=== PATIENT | female | born 1940 | race Caucasian/White ===

== ENCOUNTER 2017-01-12 11:03 | Outpatient (CLI) | payer MEDICARE ==
[2016-06-10 09:17] VITALS: BP 148/69
[2017-01-12 11:43] LABS: eGFR (African) > 60; eGFR (Non-African) > 60
== END 2017-01-12 11:04 ==
LOC: LAB 11:03
PROVIDERS: ATTEND Family Medicine
DX: E78.2 Mixed hyperlipidemia (principal)
CPT/HCPCS: 36415; 80053; 80061

== ENCOUNTER 2017-05-23 14:00 | Outpatient (CLI) | payer MEDICARE ==
[2016-06-10 09:17] VITALS: BP 148/69
[2017-05-23 14:24] LABS: BASOPHILS % 0.8 (0.0-1.5); MEAN CORPUSCULAR HEMOGLOBIN 33.3 pg (28.0-34.0); MEAN CORPUSCULAR VOLUME 101.3 fl (80.0-100.0); MONOCYTES % 2.8 % (0.0-11.0); NEUTROPHILS # 10.7 # k/uL (1.4-7.7)
[2017-05-23 14:54] LABS: eGFR (African) > 60; eGFR (Non-African) > 60
--- NOTE | 2017-05-23 14:59 | Diagnostic Imaging Report ---
JACKI CULLEN [facility] [id number] [facility] [address] [place], [place]. [address] Report Submission Date: May 23, 2017 2:35:31 PM CDT Patient Study Name: SUSAN SAMANIEGO Date: May 23, 2017 2:15:54 PM CDT Modality Type: CR Gender: F Description: CHEST : 44 Institution: [facility] Physician: JACKI CULLEN Examination: PA and lateral chest. History: Evaluate lung cruz. Comparison exam: Not available Findings: PA lateral chest demonstrate a normal cardiac and mediastinal silhouette. Vascular calcifications involving the aortic arch. Lungs are hyperinflated. No focal infiltrate. No effusion. No blunting of the costophrenic margins. Osseous structures are appropriate for age. Impression: Hyperinflated, emphysematous changes. No acute pulmonary process. Electronically signed on May 23, 2017 2:35:31 PM CDT by: Albert COOL
--- NOTE | 2017-05-23 16:46 | Diagnostic Imaging Report ---
[facility] [id number] [facility] [address] [place], [place]. [address] Report Submission Date: May 23, 2017 3:55:56 PM CDT Patient Study Name: SUSAN SAMANIEGO Date: May 23, 2017 3:20:23 PM CDT Modality Type: CT\SR Gender: F Description: CT BRAIN W & W/O CON : 44 Institution: [facility] Physician: JACKI CULLEN - WALT Examination: CT head without and with contrast History: Double vision Comparison exam: None available Technique: Without and with contrast head CT protocol. Findings: Ventricles and sulci are prominent, though consistent for patient age. Cerebrocerebellar parenchyma demonstrates periventricular low attenuation consistent with small vessel disease. No evidence for parenchymal hemorrhage. No abnormal enhancement on the postcontrast imaging. No evidence for mass or mass effect. No midline shift. No extra axial fluid collections. Partial visualization of the paranasal sinuses, mastoid air cells, orbits, skull and scalp without gross regularity. Impression: Age related changes. No acute parenchymal process. No hemorrhage. No abnormal enhancement. If symptoms persist, consider obtaining a MRI brain to further evaluate. Electronically signed on May 23, 2017 3:55:56 PM CDT by: Albert COOL
== END 2017-05-23 14:02 ==
LOC: RAD 14:00
PROVIDERS: ATTEND Family Medicine
DX: R11.0 Nausea (principal); R63.4 Abnormal weight loss; H53.2 Diplopia; R05 Cough
CPT/HCPCS: 36415; 70470; 71020; 80053; 84443; 85025; Q9966

== ENCOUNTER 2017-09-19 14:32 | Outpatient (CLI) | payer MEDICARE ==
[2016-06-10 09:17] VITALS: BP 148/69
[2017-09-19 15:17] LABS: BASOPHILS % 1.2 (0.0-1.5); EOSINOPHILS % 5.7 % (0.0-6.8); MEAN CORPUSCULAR HEMOGLOBIN 32.1 pg (28.0-34.0); MEAN CORPUSCULAR VOLUME 101.3 fl (80.0-100.0); MONOCYTES % 3.2 % (0.0-11.0); NEUTROPHILS # 6.4 # k/uL (1.4-7.7)
[2017-09-19 15:50] LABS: eGFR (African) > 60; eGFR (Non-African) > 60
[2017-09-19 23:10] LABS: IRON SERUM 116 ug/dL (37-145)
== END 2017-09-19 14:33 ==
LOC: LAB 14:32
PROVIDERS: ATTEND Orthopaedic Surgery
DX: R00.2 Palpitations (principal); M25.511 Pain in right shoulder
CPT/HCPCS: 36415; 80053; 82525; 82607; 82746; 83540; 83921; 84207; 84443; 85025

== ENCOUNTER 2017-09-26 12:34 | Outpatient (CLI) | payer MEDICARE ==
[2016-06-10 09:17] VITALS: BP 148/69
== END 2017-09-26 12:35 ==
LOC: LAB 12:34
PROVIDERS: ATTEND Family Medicine
DX: R73.9 Hyperglycemia, unspecified (principal)
CPT/HCPCS: 36415; 83036

== ENCOUNTER 2017-09-30 14:10 | Outpatient (CLI) | payer MEDICARE ==
[2016-06-10 09:17] VITALS: BP 148/69
== END 2017-09-30 14:11 ==
LOC: POD 14:10
PROVIDERS: ATTEND Podiatrist
DX: B35.1 Tinea unguium (principal); G60.3 Idiopathic progressive neuropathy; M79.674 Pain in right toe(s); M79.675 Pain in left toe(s)
CPT/HCPCS: G0463

== ENCOUNTER 2017-12-30 13:50 | Outpatient (CLI) | payer MEDICARE ==
[2016-06-10 09:17] VITALS: BP 148/69
== END 2017-12-30 14:00 ==
LOC: POD 13:50
PROVIDERS: ATTEND Podiatrist
DX: B35.1 Tinea unguium (principal); M79.674 Pain in right toe(s); M79.675 Pain in left toe(s); G60.3 Idiopathic progressive neuropathy
CPT/HCPCS: 11721; G0463

== ENCOUNTER 2018-03-21 13:33 | Outpatient (CLI) | payer MEDICARE ==
[2016-06-10 09:17] VITALS: BP 148/69
[2018-03-21 14:01] LABS: BASOPHILS % 0.9 (0.0-1.5); EOSINOPHILS % 5.5 % (0.0-6.8); MEAN CORPUSCULAR VOLUME 96.8 fl (80.0-100.0); MONOCYTES % 4.7 % (0.0-11.0); NEUTROPHILS # 5.3 # k/uL (1.4-7.7)
[2018-03-21 14:15] LABS: eGFR (African) > 60; eGFR (Non-African) > 60
== END 2018-03-21 13:34 ==
LOC: RT 13:33
PROVIDERS: ATTEND Family Medicine
DX: R00.2 Palpitations (principal)
CPT/HCPCS: 36415; 80048; 84443; 85025

== ENCOUNTER 2018-03-28 14:35 | Outpatient (CLI) | payer MEDICARE ==
[2016-06-10 09:17] VITALS: BP 148/69
== END 2018-03-28 14:36 ==
LOC: RT 14:35
PROVIDERS: ATTEND Family Medicine
DX: R00.2 Palpitations (principal)
CPT/HCPCS: 93225

== ENCOUNTER 2018-03-31 14:21 | Outpatient (CLI) | payer MEDICARE ==
[2016-06-10 09:17] VITALS: BP 148/69
== END 2018-03-31 14:22 ==
LOC: POD 14:21
PROVIDERS: ATTEND Podiatrist
DX: B35.1 Tinea unguium (principal); M79.674 Pain in right toe(s); M79.675 Pain in left toe(s); G60.3 Idiopathic progressive neuropathy
CPT/HCPCS: 11721

== ENCOUNTER 2018-06-15 04:37 | Emergency (ER) | payer MEDICARE ==
--- NOTE | 2018-06-15 04:46 | ED Physician Documentation ---
Epistaxis - HISTORIAN Historian: patient - HPI Stated Complaint: nose bleed Chief Complaint: Epistaxis Onset: days ago (2 she did go to [facility] ) Timing: still present Location: left Severity: mild Associated Symptoms: other (She was treated at a hospital in [place] she states [facility] ) Further Comments: yes (She states she was treated for an extended nose bleed yesterday. She states she was told the packing would dissolve and she started with another nose bleed 2 hours ago. She tried the home items she had with no relief. She has had partial resolution per EMS) - ROS MS/SKIN/LYMPH: denies: excessive bruising, bleeding from gums EYES/ENT: none NEURO/PSYCH: denies: dizziness, anxiety - PAST HX Past History: previous nosebleeds Immunizations: UTD Home Medications: Ambulatory Orders Medication Instructions Recorded Aspirin [Tonya] 81 mg PO DAILY 06/15/18 - SOCIAL HX Smoking History: cigarettes Alcohol Use: none Drug Use: none - FAMILY HX Family History: No - VITAL SIGNS Vital Signs: Vital Signs Temp Pulse Resp BP Pulse Ox 148/69 06/10/16 09:18 - REVIEWED ASSESSMENTS Nursing Assessment Reviewed: Yes Vitals Reviewed: Yes Progress - Progress Progress: 0507 : minimal drip out of left nare DG 0544: left nare with clot . No active bleeding DG 0610: mild drip noted on left nare will use packing at this time DG 0630: Discussed case with Dr Hyde and will allow for time in clinic tomorrow for removal of Rhino packing DG 0700: Care turned over to Joanna Madrigal FAMILY RESOURCE MANAGEMENT SPECIALIST DG Epistaxis Physical Exam - EXAM General Appearance: no acute distress, alert Nose: nml inspection, other (minimal blood noted at left nare. Crusting blood on fingers and face ) Eyes/Ears: eyes nml inspection, TM nml Mouth: lips nml Neuro/Psych: oriented x3, neuro intact, mood/affect nml Respiratory: no resp distress, chest non-tender, breath sounds normal CVS: reg rate & rhythm, heart sounds normal, equal pulses, no murmur Abdomen: non-tender Skin: nml color, no skin rash Discharge Clincal Impression: Epistaxis Referrals: Annita Hyde MD [Primary Care Provider] - 2 Days Comments: 1. Notify PCP for any issues with continued bleeding 2. Return to ER for any uncontrolled bleeding Condition: Stable Disposition: 01 HOME, SELF-CARE Decision to Admit: NO Date of Decison to Admit: 06/15/18 Decision Time: 06:42
[2018-06-15] MEDS: OXYMETAZOLINE HCL 0.05% NASAL SPRAY NS ONE (05:20)
[2018-06-15 05:46] LABS: BASOPHILS % 0.4 (0.0-1.5); EOSINOPHILS % 1.9 % (0.0-6.8); MEAN CORPUSCULAR HEMOGLOBIN 30.7 pg (28.0-34.0); MONOCYTES % 2.6 % (0.0-11.0); NEUTROPHILS # 7.4 # k/uL (1.4-7.7)
[2018-06-15] MEDS: 0.9 % SODIUM CHLORIDE 1,000 ML IV ONE (06:00)
[2018-06-15 06:06] LABS: eGFR (Non-African) > 60
[2018-06-15] MEDS ORDERED: SODIUM CHLORIDE 3 ML VIAL.NEB IH ONE (06:39)
[2018-06-15 07:34] VITALS: BP 172/75
== END 2018-06-15 06:45 | disposition home or self-care (01) ==
LOC: ED 04:37
DX: R04.0 Epistaxis (principal)
CPT/HCPCS: 80053; 85025; 85610; J7030; 96365; 99284; S1016

== ENCOUNTER 2019-09-06 10:30 | Emergency (ER) | payer MEDICARE ==
[2019-09-06] MEDS ORDERED: IPRATROPIUM/ALBUTEROL SULFATE 3 ML AMPUL.NEB NEB ONE (11:00)
[2019-09-06] MEDS ORDERED: 0.9 % SODIUM CHLORIDE 500 ML IV ONE (11:00)
[2019-09-06 11:03] LABS: BASOPHILS % 0.7 % (0.0-1.5); NEUTROPHILS # 6.6 # k/uL (1.4-7.7)
--- NOTE | 2019-09-06 11:10 | ED Physician Documentation ---
General Adult - HISTORIAN Historian: patient, spouse - [facility] Chief Complaint: General Adult Additional Information: 79 year old female presents via [facility] from home; according to he had been trying to wake her up since 8:00 this morning and after 30-60 min. of trying he called the ambulance. They were able to wake her up; she did not want to be transferred but finally agreed. The stated that the nurse stayed till midnight last night because patients pulse ox was 40%, lips were blue, extremities were blue; they placed her on bipap and she rested. Patient states that she use to be on Hospice but was taken off around May because she was independent and eating well. At this time she states that she is not able to walk anymore, she lays in the bed all day, she states that she does not eat- she has no desire; she tries to drink fluids; they questioned if she would qualify for hospice since she has declined and can no longer care for herself independently. Patient is starting to have skin issues including; coccyx and heels (redness). Patient states that she is a DNR "this is no way to live". Will get with [employer] Onset: hours Timing: better Severity: mild Modifying Factors: Low oxygen last night; was on Bipap - ROS CONST: fever, sweating, recent illness, weakness, weight loss EYES/ENT: none CVS/RESP: shortness of breath, cough (patient feels that she cant cough deep enough to get anything up) GI/: denies: vomiting, nausea MS/SKIN/LYMPH: none NEURO/PSYCH: tingling, difficulty walking - PAST HX Past History: asthma, COPD, CHF, hypertension, other (GERD, ANGELINA) Other History: CVA, other (C-DIFF, PER. NEUROPATHY) Surgeries/Procedures: hysterectomy Immunizations: UTD Allergies/Adverse Reactions: Allergies Allergy/AdvReac Type Severity Reaction Status Date / Time No Known Drug Allergies Allergy Verified 09/06/19 10:52 Home Medications: Ambulatory Orders Medication Instructions Recorded Aspirin [Tonya] 81 mg PO DAILY 06/15/18 Gabapentin 300 mg pe PO QID 09/06/19 - SOCIAL HX Smoking History: less than 1 pack/day Alcohol Use: none Drug Use: none - FAMILY HX Family History: No - VITAL SIGNS Vital Signs: Vital Signs Temp Pulse Resp BP Pulse Ox 172/75 06/15/18 06:45 - REVIEWED ASSESSMENTS Nursing Assessment Reviewed: Yes Vitals Reviewed: Yes Progress - Progress Progress: 11:38 [employer] at the bedside discussing hospice info ED Results Lab/Radiology - Lab Results Lab Results: Lab Results 09/06/19 11:00 WBC 11.80 K/ul K/ul (4.00-12.00) RBC 4.33 M/ul M/ul (3.90-5.20) Hgb 13.3 g/dL g/dL (11.5-16.0) Hct 41.0 % % (34.5-46.5) MCV 95.0 fl fl (80.0-100.0) MCH 30.7 pg pg (28.0-34.0) MCHC 32.3 g/dL g/dL (30.0-36.0) RDW 11.4 % % (11.3-14.3) Plt Count 282 K/mm3 K/mm3 (130-400) Neut % (Auto) 56.2 % % (39.0-79.0) Lymph % (Auto) 32.8 % % (16.0-50.0) Cataño % (Auto) 9.5 % % (0.0-11.0) Eos % (Auto) 0.8 % % (0.0-6.8) Baso % (Auto) 0.7 % % (0.0-1.5) Neut # (Auto) 6.6 # k/uL # k/uL (1.4-7.7) Lymph # (Auto) 3.9 # k/uL # k/uL (0.6-4.0) Cataño # (Auto) 1.1 # k/uL H # k/uL (0.0-0.9) Eos # (Auto) 0.1 # k/uL # k/uL (0.0-0.6) Baso # (Auto) 0.1 # k/uL # k/uL (0.0-0.5) - Radiology Radiology Impressions: Exam: Chest two views. History: Shortness of breath. No previous studies are available for comparison. Lung cruz are hyperaerated with flattening of the diaphragms noted. No edgar consolidation or effusion is seen. Heart size is within normal limits with atherosclerotic plaques seen in the aorta. No other bony abnormalities are identified. Impression: Emphysematous changes. No edgar consolidation or effusion. Electronically signed on Sep 06, 2019 11:44:17 AM [employer] by: Fili Romero - Orders Orders: ED Orders Category Date Time Status Continuous EKG monitoring Q30M Care 09/06/19 11:00 Active Continuous Pulse Oximetry Q30M Care 09/06/19 11:[address] IV Lock 1T Care 09/06/19 11:00 Active CHEST 2VIEW [RAD] Stat Exams 09/06/19 Ordered BLOOD CULTURE Stat Lab 09/06/19 11:00 Ordered CBC/PLATELET/DIFF Stat Lab 09/06/19 11:00 Completed CKMB Stat Lab 09/06/19 11:00 Received CMP Stat Lab 09/06/19 11:00 Received CREATINE KINASE Stat Lab 09/06/19 11:00 Received NT BNP Stat Lab 09/06/19 11:00 Received TROPONIN I Stat Lab 09/06/19 11:00 Received 0.9 % Sodium Chloride [Normal Saline] 500 ml Med 09/06/19 11:00 Active IV NOW Ipratropium/Albuterol Sulfate [Duoneb] Med 09/06/19 11:00 Discontinued 3 ml NEB NOW ONE Oxygen Daily Oxygen 09/06/19 11:00 Ordered EKG WITH COMPARISON Stat Ther 09/06/19 11:00 Ordered General Adult Physical Exam - PHYSICAL EXAM GENERAL APPEARANCE: mild distress EENT: eye inspection normal, ENT inspection normal, pharynx normal, TAI, dry mucous membranes NECK: normal inspection, supple RESPIRATORY: breath sounds normal CVS: heart sounds normal ABDOMEN: soft, no distension, non-tender BACK: normal inspection SKIN: warm/dry, other (Redness to coccyx & heels) EXTREMITIES: non-tender, other (bed ridden) NEURO: oriented X3, sensation nml, cognition normal Discharge Clincal Impression: Hospice care, Weakness Referrals: Annita Hyde MD [Primary Care Provider] - 2 Days Additional Instructions: Patient is aware of lab work and Xray; she wants to go home and would like hospice Laura with [employer] is working on Hospice; she will be in contact with patient Spoke with PCP and she agrees with plan Discharged home via EMS due to bedridden, requiring oxygen, and pain with sitting d/t skin issues Comments: Patient does not want further treatment; she wants to go home Condition: Good Disposition: 01 HOME, SELF-CARE Decision to Admit: NO Decision Time: 13:18
[2019-09-06 11:12] LABS: eGFR (Non-African) > 60
--- NOTE | 2019-09-06 11:47 | Diagnostic Imaging Report ---
PATIENT MR#: [id number] PATIENT PATIENT NAME: SUSAN SAMANIEGO DATE OF : 1940 REFERRING PHYSICIAN: Angela Rausch EXAM DATE: 09/06/2019 ACCESSION NUMBER: [id number] EXAM DESCRIPTION: CHEST 2VIEW Exam: Chest two views. History: Shortness of breath. No previous studies are available for comparison. Lung cruz are hyperaerated with flattening of the diaphragms noted. No edgar consolidation or effu homer is seen. Heart size is within normal limits with atherosclerotic plaques seen in the aorta. No other bony abn ormalities are identified. Impression: Emphysematous changes. No edgar consolidation or effusion. Read by: Dr. Fili Miller Transcribed by: Transcribed Date: Electronically signed by: Dr. Fili Miller Date signed: 09/06/2019 11:47:07 AM
[2019-09-06 14:38] VITALS: BP 123/44
== END 2019-09-06 12:55 | disposition home or self-care (01) ==
LOC: ED 10:30 → SOUTH 12:19 → UNDOADMOB 12:19 → ED 12:55
DX: Z51.5 Encounter for palliative care (principal); R53.1 Weakness
CPT/HCPCS: 71046; 80053; 82550; 82553; 83880; 84484; 85025; 87040; 94640; 96360; 99284; J7060; S1016